=== PATIENT | female | born 1980 | race American Indian/Alaskan Native ===

== ENCOUNTER 2019-07-25 07:06 | Emergency (ER) | payer MEDICAID ==
[2019-07-25] MEDS ORDERED: METOCLOPRAMIDE 10 MG TAB PO ONE (08:54)
--- NOTE | 2019-07-25 08:54 | Emergency Department Report ---
ED General Adult HPI - General Chief complaint: Nausea/Vomiting/Diarrhea Stated complaint: DIZZY/VOMITING Time Seen by Provider: 07/25/19 08:27 Source: patient Mode of arrival: Ambulatory Limitations: No Limitations - History of Present Illness Initial comments: This is a 38-year-old female with a history of diabetes and hypertension presents the ED complaining of one episode of vomiting that happened yesterday while she was at work. Patient states she felt a little dizzy after the vomiting episode. Patient states she got a little dizzy this morning as well. Patient states that she did get a chance to eat breakfast so this may be due to that. Patient states that she saw her primary care physician about a month ago and he recently changed her blood pressure medication. Patient states that since she has been taking the new blood pressure medication she has been feeling a little nauseated and sometimes lightheaded. She denies fever/chills/abdominal pain/chest pain/shortness of breath/diarrhea/headache/blurry vision - Related Data Previous Rx's Medication Instructions Recorded Last Taken Type Metoclopramide [Reglan] 10 mg PO TID #30 tab 07/25/19 Unknown Rx Allergies Allergy/AdvReac Type Severity Reaction Status Date / Time No Known Allergies Allergy Unverified 07/25/19 08:56 ED Review of Systems ROS: Stated complaint: DIZZY/VOMITING Other details as noted in HPI Comment: All other systems reviewed and negative ED Past Medical Hx - Past Medical History Previous Medical History?: Yes Hx Hypertension: Yes Hx Diabetes: Yes - Surgical History Past Surgical History?: No - Medications Home Medications: Home Medications Medication Instructions Recorded Confirmed Last Taken Type Metoclopramide [Reglan] 10 mg PO TID #30 tab 07/25/19 Unknown Rx ED Physical Exam - General Limitations: No Limitations General appearance: alert, in no apparent distress - Head Head exam: Present: atraumatic, normocephalic - Eye Eye exam: Present: normal appearance, PERRL Pupils: Present: normal accommodation - ENT ENT exam: Present: mucous membranes moist - Neck Neck exam: Present: normal inspection - Respiratory Respiratory exam: Present: normal lung sounds bilaterally. Absent: respiratory distress - Cardiovascular Cardiovascular Exam: Present: regular rate, normal rhythm. Absent: systolic murmur, diastolic murmur, rubs, gallop - GI/Abdominal GI/Abdominal exam: Present: soft, normal bowel sounds. Absent: distended, tenderness, guarding, mass, bruit - Extremities Exam Extremities exam: Present: normal inspection - Back Exam Back exam: Present: normal inspection, full ROM. Absent: CVA tenderness (R), CVA tenderness (L) - Neurological Exam Neurological exam: Present: alert, oriented X3, CN II-XII intact, normal gait, reflexes normal. Absent: motor sensory deficit - Expanded Neurological Exam Expanded Patient oriented to: Present: person, place, time Speech: Present: fluid speech Cerebellar function: Finger to Nose: Normal Motor strength exam: RUE: 5, LUE: 5, RLE: 5, LLE: 5 Best Eye Response ([place]): (4) open spontaneously Best Motor Response ([place]): (6) obeys commands Best Verbal Response ([place]): (5) oriented [place] Total: 15 - Psychiatric Psychiatric exam: Present: normal affect, normal mood - Skin Skin exam: Present: warm, dry, intact, normal color. Absent: rash ED Course Vital Signs 07/25/19 07/25/19 08:55 09:40 Temperature 98.6 F Pulse Rate 95 H 86 Respiratory 20 18 Rate Blood Pressure 142/95 140/86 [Left] O2 Sat by Pulse 96 99 Oximetry ED Medical Decision Making - Medical Decision Making This 38-year-old diabetic female presents with mild onset of vomiting that resolved. Patient received Reglan in the ED there was no vomiting in the ED. I discussed with patient to follow-up with primary care physician and discuss possibly changing blood pressure medication. Vital signs are normalized fingerstick in the ED was 147 which is this time as patient has not taken HER metformin this morning Patient is in no neurological deficit and has no respiratory or acute distress. Discussed with patient proper eating and taking her medications on time. Discussed increase hydration Critical care attestation.: If time is entered above; I have spent that time in minutes in the direct care of this critically ill patient, excluding procedure time. ED Disposition Clinical Impression: Acute vomiting, Diabetes Disposition: DC-01 TO HOME OR SELFCARE Is pt being admited?: No Does the pt Need Aspirin: No Condition: Stable Instructions: Diabetes Mellitus Type 2 in Adults (ED) Additional Instructions: Make sure to follow up with the primary care physician as discussed. Take all your medications as you've been prescribed. If you have any worsening symptoms or develop new symptoms please return to ED immediately. Prescriptions: Metoclopramide [Reglan] 10 mg PO TID #30 tab Referrals: FITO FERNANDEZ RN [Primary Care Provider] - 3-5 Days Forms: Accompanied Note, Work/School Release Form(ED) Time of Disposition: 09:25
[2019-07-25 09:41] VITALS: BP 140/86
== END 2019-07-25 09:40 | disposition home or self-care (01) ==
LOC: ED 07:06
DX: R11.10 Vomiting, unspecified (principal); R42 Dizziness and giddiness; E66.9 Obesity, unspecified; I10 Essential (primary) hypertension
CPT/HCPCS: 82962; 99282

== ENCOUNTER 2020-01-02 07:15 | Emergency (ER) | payer BC, MEDICAID ==
[2020-01-02 07:23] VITALS: BP 127/83
[2020-01-02 07:36] LABS: Basophils # (Auto) 0.1 K/mm3 (0.0-0.1); Basophils % (Auto) 0.8 % (0.0-1.8); Eosinophils # (Auto) 0.1 K/mm3 (0.0-0.4); Eosinophils % (Auto) 1.1 % (0.0-4.3); Hematocrit 27.4 % (30.3-42.9); Hemoglobin 9.2 gm/dl (10.1-14.3); Lymphocytes # (Auto) 2.3 K/mm3 (1.2-5.4); Lymphocytes % (Auto) 35.9 % (13.4-35.0); Mean Corpuscular HGB Conc 34 % (30-34); Mean Corpuscular Volume 82 fl (79-97); Monocytes # (Auto) 0.4 K/mm3 (0.0-0.8); Monocytes % (Auto) 6.4 % (0.0-7.3); Platelet Count 279 K/mm3 (140-440); Red Blood Count 3.36 M/mm3 (3.65-5.03); Red Cell Distribution Width 14.4 % (13.2-15.2)
[2020-01-02 08:19] LABS: Alanine Aminotransferase 19 units/L (7-56); Albumin 4.2 g/dL (3.9-5); BUN/Creatinine Ratio 14; Blood Urea Nitrogen 37 mg/dL (7-17); Hemolysis Index 0
--- NOTE | 2020-01-02 08:32 | Emergency Department Report ---
ED Abdominal Pain HPI - General Chief Complaint: Abdominal Pain Stated Complaint: STOMACH PAIN Time Seen by Provider: 01/02/20 08:31 Source: patient Mode of arrival: Ambulatory Limitations: No Limitations - History of Present Illness Initial Comments: 39-year-old -[place] female presents to the emergency room for lower abdominal pain for 2 days. She denies any nausea vomiting or diarrhea. She denies any fever chills. Patient does admit to a past medical history of diabetes hypertension and acute kidney disease. Patient states that she is followed by Dr. 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 Her next appointment is March 27. Patient reports that her last kidney function tests on December 15, 2019 was 1.9 she has had a maximum creatinine of 2.7 and the lowest has been is 0.7. Patient is currently takes amlodipine 10 mg daily and hyzaar 50 mg over 12.5 mg. Patient takes metformin 500 mg twice a day. Her primary care doctor is Dr. Millard at [facility]. MD Complaint: abdominal pain - Related Data Previous Rx's Medication Instructions Recorded Last Taken Type Metoclopramide [Reglan] 10 mg PO TID #30 tab 07/25/19 Unknown Rx Amoxicillin/K Clav Tab [Augmentin 1 tab PO Q12HR 10 Days #20 tab 01/02/20 Unknown Rx 875 mg] Allergies Allergy/AdvReac Type Severity Reaction Status Date / Time lisinopril Allergy Unknown Verified 01/02/20 07:21 ED Review of Systems ROS: Stated complaint: STOMACH PAIN Other details as noted in HPI ED Past Medical Hx - Past Medical History Hx Hypertension: Yes Hx Diabetes: Yes - Social History Smoking Status: Never Smoker - Medications Home Medications: Home Medications Medication Instructions Recorded Confirmed Last Taken Type Metoclopramide [Reglan] 10 mg PO TID #30 tab 07/25/19 Unknown Rx Amoxicillin/K Clav Tab [Augmentin 1 tab PO Q12HR 10 Days #20 tab 01/02/20 Unknown Rx 875 mg] ED Physical Exam - General Limitations: No Limitations ED Course Vital Signs 01/02/20 07:19 Temperature 98.0 F Pulse Rate 86 Respiratory 18 Rate Blood Pressure 127/83 O2 Sat by Pulse 100 Oximetry ED Medical Decision Making - Lab Data Result diagrams: 01/02/20 07:23 01/02/20 07:23 - Medical Decision Making 39-year-old -[place] female presents to the emergency room for lower abdominal pain for 2 days. She denies any nausea vomiting or diarrhea. She denies any fever chills. Patient does admit to a past medical history of diabetes hypertension and acute kidney disease. Patient states that she is followed by Dr. Ida Landry at [facility] hardware design engineer. Her next appointment is March 27. Patient reports that her last kidney function tests on December 15, 2019 was 1.9 she has had a maximum creatinine of 2.7 and the lowest has been is 0.7. Patient is currently takes amlodipine 10 mg daily and hyzaar 50 mg over 12.5 mg. Patient takes metformin 500 mg twice a day. Her primary care doctor is Dr. Milladr at [facility]. Patient's BUN today was 37 GFR of 25. Urinalysis shows that she has a urinary tract infection with greater than 182 WBCs as well as RBCs. CT scan shows is negative for any acute abnormalities. Patient was treated with the IV dose of normal saline and Levaquin 500 mg. Patient will be discharged home on Augmentin 875 p.o. twice da lj for 10 days. Patient is instructed to increase her water intake and to follow-up with her hardware design engineer. Critical care attestation.: If time is entered above; I have spent that time in minutes in the direct care of this critically ill patient, excluding procedure time. ED Disposition Clinical Impression: Chronic kidney disease (CKD) stage G1/A2, glomerular filtration rate (GFR) equal to or greater than 90 mL/min/1.73 square meter and albuminuria creatinine ratio between 30-299 mg/g, Diabetes 1.5, managed as type 2 Urinary tract infection Qualifiers: Urinary tract infection type: site unspecified Hematuria presence: with hematuria Qualified Code(s): N39.0 - Urinary tract infection, site not specified; R31.9 - Hematuria, unspecified Hypertension Qualifiers: Hypertension type: essential hypertension Qualified Code(s): I10 - Essential (primary) hypertension Disposition: TO HOME OR SELFCARE Is pt being admited?: No Does the pt Need Aspirin: No Condition: Stable Instructions: Abdominal Pain (ED), Diabetes Mellitus Type 2 in Adults (ED), Hypertension (ED), Urinary Tract Infection in Women (ED) Additional Instructions: CT scan is negative for any acute findings. Urinalysis shows that you have a urinary tract infection I would like for you to complete your antibiotics you can take [id number] pain medication. It is imperative that you increase your water intake. You must follow-up with your primary care doctor in the next 3 to 4 days for reevaluation. Prescriptions: Amoxicillin/K Clav Tab [Augmentin 875 mg] 1 tab PO Q12HR 10 Days #20 tab Referrals: ARNALDO FERNANDEZ JR, MD [Primary Care Provider] - 3-5 Days Forms: Work/School Release Form(ED)
[2020-01-02] MEDS ORDERED: SODIUM CHLORIDE 0.9% 1000 ML 1,000 ML IV ONE (08:53)
[2020-01-02 09:40] LABS: Bilirubin,Urine MOD (Negative); Blood,Urine LG (Negative); Color,Urine Red (Yellow); Urobilinogen,Urine < 2.0 mg/dL (<2.0)
[2020-01-02 09:42] LABS: RBC,Urine > 182.0 /HPF (0.0-6.0)
[2020-01-02 09:50] LABS: Ictotest,Urine Negative (Negative)
[2020-01-02] MEDS ORDERED: levoFLOXacin 500 MG TAB PO ONE (09:58)
[2020-01-02] MEDS ORDERED: ACETAMINOPHEN 325 MG TAB PO ONE (09:58)
--- NOTE | 2020-01-02 11:01 | Cat Scan Report ---
CT ABDOMEN AND PELVIS WITHOUT CONTRAST HISTORY: Pelvic pain COMPARISON: None TECHNIQUE: Routine abdominal and pelvic CT exam performed without contrast. Lack of intravenous cont rast limits evaluation of the vascular and solid organs.. All CT scans at this location are performed using CT dose reduction for ALARA by means of automated exposure control. FINDINGS: CT ABDOMEN: Lung Bases: No significant abnormality. Liver: No significant abnormality. Biliary: No significant abnormality. Spleen: No significant abnormality. Unenlarged. Pancreas: No significant abnormality. Adrenals: No significant abnormality. Kidneys: No stones, pelvocaliectasis, ureterectasis. No perinephric or periureteral stranding. Lymphatics: No lymphadenopathy. Vasculature: No significant abnormality. Bowel/Peritoneum: No significant abnormality. No free air. No free fluid. Normal appendix. CT PELVIC: : No acute findings. Previous bilateral tubal occlusion. Lymphatics: No lymphadenopathy. Osseous Structures: No aggressive appearing osseous lesions. Additional Findings: None IMPRESSION: 1. No significant abnormality. Signer Name: Mike Gray MD Signed: 01/02/2020 10:57 AM Workstation Name: [id number]
== END 2020-01-02 11:19 | disposition home or self-care (01) ==
LOC: ED 07:15
DX: E11.22 Type 2 diabetes mellitus with diabetic chronic kidney disease (principal); I12.9 Hypertensive chronic kidney disease with stage 1 through stage 4 chronic kidney disease, or unspecified chronic kidney disease; N18.9 Chronic kidney disease, unspecified; N39.0 Urinary tract infection, site not specified; Z79.2 Long term (current) use of antibiotics; Z79.899 Other long term (current) drug therapy; Z88.8 Allergy status to other drugs, medicaments and biological substances
CPT/HCPCS: 36415; 74176; 80053; 81001; 84703; 85025; 96360; 96361; 99284; J7030

== ENCOUNTER 2020-06-24 09:29 | Emergency (ER) | payer BC, MEDICAID ==
[2020-06-24 09:55] VITALS: BP 146/94
--- NOTE | 2020-06-24 10:28 | Emergency Department Report ---
Blank Doc - Documentation Documentation: This is a 39-year-old female headache with dizziness and syncopal episode yest erday. Patient also stated has abdominal pain with no nausea vomiting. 1- This initial assessment/diagnostic orders/clinical plan/ treatment(s) is/are subject to change based on pt's health status, clinical progression and re- assessment by fellow clinical providers in the ED. Further treatment and workup at subsequent clinical provers discretion. Patient/guardians urged not to elope from ED as their condition may be serious if not clinically assessed and managed. 2-EKG 3-CT head 4-labs
[2020-06-24 11:07] LABS: Basophils # (Auto) 0.1 K/mm3 (0.0-0.1); Eosinophils % (Auto) 0.7 % (0.0-4.3); Hematocrit 29.9 % (30.3-42.9); Hemoglobin 9.6 gm/dl (10.1-14.3); Lymphocytes # (Auto) 1.8 K/mm3 (1.2-5.4); Lymphocytes % (Auto) 33.5 % (13.4-35.0); Mean Corpuscular HGB Conc 32 % (30-34); Mean Corpuscular Volume 84 fl (79-97); Monocytes # (Auto) 0.3 K/mm3 (0.0-0.8); Monocytes % (Auto) 6.7 % (0.0-7.3); Platelet Count 280 K/mm3 (140-440); Red Blood Count 3.57 M/mm3 (3.65-5.03); Red Cell Distribution Width 14.5 % (13.2-15.2)
--- NOTE | 2020-06-24 11:13 | Cat Scan Report ---
CT HEAD WITHOUT CONTRAST INDICATION / CLINICAL INFORMATION: Syncope with headache for 3 days. TECHNIQUE: Axial imaging performed from the skull apex through the skull base without the use of cont rast. Sagittal and coronal reformatted images. All CT scans at this location are performed using CT dose reduction for ALARA by means of automated exposure control. COMPARISON: None available. FINDINGS: CEREBRAL PARENCHYMA: No significant abnormality. No acute territorial infarct. HEMORRHAGE: None. EXTRA-AXIAL SPACES: Normal in size and morphology for the patient's age. VENTRICULAR SYSTEM: Normal in size and morphology for the patient's age. MIDLINE SHIFT OR HERNIATION: None. CEREBELLUM / BRAINSTEM: No significant abnormality. CALVARIUM: No significant abnormality. ORBITS: Normal as visualized. PARANASAL SINUSES / MASTOID AIR CELLS: Normal as visualized. SOFT TISSUES of HEAD: No significant abnormality. ADDITIONAL FINDINGS: None. IMPRESSION: No acute intracranial abnormality. Signer Name: Tony Real Jr, MD Signed: 06/24/2020 11:08 AM Workstation Name: [id number]
[2020-06-24 11:27] LABS: Albumin 4.3 g/dL (3.9-5); Calcium 9.3 mg/dL (8.4-10.2)
== END 2020-06-24 14:17 | disposition left against medical advice (07) ==
LOC: ED 09:29
DX: R42 Dizziness and giddiness (principal); Z53.21 Procedure and treatment not carried out due to patient leaving prior to being seen by health care provider
CPT/HCPCS: 36415; 70450; 80053; 82962; 83690; 84703; 85025

== ENCOUNTER 2020-07-11 07:22 | Emergency (ER) | payer BC, MEDICAID ==
[2020-07-11 07:38] VITALS: BP 149/93
[2020-07-11] MEDS ORDERED: IBUPROFEN 600 MG TAB PO ONE (07:57)
--- NOTE | 2020-07-11 07:59 | Emergency Department Report ---
ED Extremity Problem HPI - General Chief complaint: Extremity Injury, Lower Stated complaint: KNEE SWELLING Time Seen by Provider: 07/11/20 07:46 Source: patient Mode of arrival: Ambulatory Limitations: No Limitations - History of Present Illness Initial comments: The patient was evaluated in the emergency department for symptoms described in the history of present illness. He/she was evaluated in the context of the global COVID-19 pandemic, which necessitated consideration that the patient might be at risk for infection with the virus that causes COVID-19. Institutional protocols and algorithms that pertain to the evaluation of patients at risk for COVID-19 are in a state of rapid change based on information released by regulatory bodies including the CDC and federal and state organizations. These policies and algorithms were followed during the patient's care in the emergency department. Please note that these policies, procedures and recommendations changed on a rapid basis. 39-year-old -[place] female with a history of diabetes and hypertension presents to the emergency room for left knee swelling and pain since Wednesday. Patient states she has been trying to pop her knee but it will not pop. Patient reports she has been taking Tylenol last dose was last night about 8 PM. 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 She does not recall any specific injury. MD Complaint: joint swelling, joint paint Onset/Timin -: days(s) Location: left, knee History of Same: No Severity scale (0 -10): 9 Quality: stabbing, aching, sharp Consistency: constant Improves with: immobilization Worsens with: weight bearing, walking, palpation Associated Symptoms: fever (Noted temperature of 99.1 in triage) - Related Data Previous Rx's Medication Instructions Recorded Last Taken Type Metoclopramide [Reglan] 10 mg PO TID #30 tab 07/25/19 Unknown Rx Amoxicillin/K Clav Tab [Augmentin 1 tab PO Q12HR 10 Days #20 tab 01/02/20 Unknown Rx 875 mg] Naproxen [Naprosyn TAB] 500 mg PO BID PRN #20 tablet 07/11/20 Unknown Rx Allergies Allergy/AdvReac Type Severity Reaction Status Date / Time lisinopril Allergy Unknown Verified 07/11/20 07:25 ED Review of Systems ROS: Stated complaint: KNEE SWELLING Other details as noted in HPI Comment: All other systems reviewed and negative ED Past Medical Hx - Past Medical History Hx Hypertension: Yes Hx Diabetes: Yes - Social History Smoking Status: Never Smoker - Medications Home Medications: Home Medications Medication Instructions Recorded Confirmed Last Taken Type Metoclopramide [Reglan] 10 mg PO TID #30 tab 07/25/19 Unknown Rx Amoxicillin/K Clav Tab [Augmentin 1 tab PO Q12HR 10 Days #20 tab 01/02/20 Unknown Rx 875 mg] Naproxen [Naprosyn TAB] 500 mg PO BID PRN #20 tablet 07/11/20 Unknown Rx ED Physical Exam - General Limitations: No Limitations General appearance: alert, in no apparent distress - Head Head exam: Present: atraumatic, normocephalic - Eye Eye exam: Present: normal appearance, PERRL - ENT ENT exam: Present: mucous membranes moist, normal external ear exam - Neck Neck exam: Present: normal inspection, full ROM - Respiratory Respiratory exam: Absent: accessory muscle use - Expanded Lower Extremity Exam Left Upper Leg exam: Present: normal inspection, full ROM Knee exam: Present: tenderness, swelling, full knee extension Lower Leg exam: Present: normal inspection, full ROM Ankle exam: Present: normal inspection, full ROM ED Course Vital Signs 07/11/20 07:31 Temperature 99.1 F Pulse Rate 90 Respiratory 18 Rate Blood Pressure 149/93 O2 Sat by Pulse 100 Oximetry ED Medical Decision Making - Radiology Data Radiology results: report reviewed [address] [address] XRay Report Signed Patient: SOMMER PICKETT MR#: [id number] : 1980 Acct:[id number] Age/Sex: 39 / F ADM Date: 07/11/20 Loc: ED Attending Dr: Ordering Physician: SOL BRITT Date of Service: 07/11/20 Procedure(s): XR knee 3V LT Accession Number(s): [id number] cc: SOL BRITT Fluoro Time In Minutes: LEFT KNEE 3 VIEWS INDICATION: left knee pain and swelling. COMPARISON: None. IMPRESSION: A moderate to large joint effusion is identified in the lateral image. Mild to moderate osteoarthritic changes are identified in the patellofemoral and medial compartments. No acute osseous injury or bone lesion is appreciated. Signer Name: Tony Real Jr, MD Signed: 07/11/2020 8:36 AM Workstation Name: [id number] Transcribed By: TTR Dictated By: TONY REAL JR, MD Electronically Authenticated By: TONY REAL JR, MD Signed Date/Time: 07/11/20835 DD/ 5 TD/TT: Print Cancel - Medical Decision Making 39-year-old -[place] female with a history of diabetes and hypertension presents to the emergency room for left knee swelling and pain since Wednesday. Patient states she has been trying to pop her knee but it will not pop. Patient reports she has been taking Tylenol last dose was last night about 8 PM. 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 She does not recall any specific injury. X-ray 3 view has been ordered ibuprofen 600 mg have been ordered. X-ray of knee shows moderate to large effusion. And mild to moderate osteoarthritic changes in the medial lateral. Need to wear the knee immobilizer and use the crutches and follow-up with orthopedic for possible MRI or further studies. Tylenol or ibuprofen or naproxen. Critical care attestation.: If time is entered above; I have spent that time in minutes in the direct care of this critically ill patient, excluding procedure time. ED Disposition Clinical Impression: Effusion of left knee joint Disposition: DC-01 TO HOME OR SELFCARE Is pt being admited?: No Does the pt Need Aspirin: No Condition: Stable Additional Instructions: Need to wear the knee immobilizer and use the crutches and follow-up with orthopedic for possible MRI or further studies. Tylenol or ibuprofen or naproxen. Prescriptions: Naproxen [Naprosyn TAB] 500 mg PO BID PRN #20 tablet PRN Reason: Pain , Severe (7-10) Referrals: PRIMARY CAREMD [Primary Care Provider] - 3-5 Days LEONIE JIM MD [Staff Physician] - 3-5 Days Forms: Work/School Release Form(ED)
--- NOTE | 2020-07-11 08:41 | XRay Report ---
LEFT KNEE 3 VIEWS INDICATION: left knee pain and swelling. COMPARISON: None. IMPRESSION: A moderate to large joint effusion is identified in the lateral image. Mild to moderate osteoarthritic changes are identified in the patellofemoral and medial compartments. No acute osseou s injury or bone lesion is appreciated. Signer Name: Tony Real Jr, MD Signed: 07/11/2020 8:36 AM Workstation Name: [id number]
== END 2020-07-11 09:38 | disposition home or self-care (01) ==
LOC: ED 07:22
DX: M25.462 Effusion, left knee (principal); I10 Essential (primary) hypertension; E11.9 Type 2 diabetes mellitus without complications; Z79.899 Other long term (current) drug therapy
CPT/HCPCS: 99283

== ENCOUNTER 2022-01-06 06:32 | Inpatient (IN) | payer BC, MEDICAID ==
[2022-01-06] MEDS ORDERED: ACETAMINOPHEN 325 MG TAB PO ONE (10:13)
[2022-01-06] MEDS ORDERED: IBUPROFEN 600 MG TAB PO ONE (10:14)
--- NOTE | 2022-01-06 10:55 | XRay Report ---
Thoracic spine, 2 views Lumbar spine, 3 views HISTORY: Pain COMPARISON: None FINDINGS: Thoracic spine: Alignment is preserved. No evidence of fracture. Small endplate osteophytes of the up per thoracic spine. Soft tissues are unremarkable. Visualized lungs are clear. Lumbar spine: Transitional features at the lumbosacral junction. Alignment is preserved. Vertebral asa dy heights and disc spaces are maintained. No evidence of fracture. IMPRESSION: No acute findings of the lumbar or thoracic spine. Signer Name: Ric Jimenez MD Signed: 01/06/2022 10:51 AM Workstation Name: [id number]
[2022-01-06 12:51] LABS: Hematocrit 31.5 % (30.3-42.9); Hemoglobin 9.7 gm/dl (10.1-14.3); Mean Corpuscular HGB Conc 31 % (30-34); Mean Corpuscular Volume 89 fl (79-97); Platelet Count 267 K/mm3 (140-440); Red Blood Count 3.52 M/mm3 (3.65-5.03); Red Cell Distribution Width 17.1 % (13.2-15.2)
[2022-01-06 12:57] LABS: RBC,Urine < 1.0 /HPF (0.0-6.0)
[2022-01-06 13:04] LABS: Amphetamine Screen,Urine PRESUMPTIVE NEGATIVE; Benzodiazepines Screen,Urine PRESUMPTIVE NEGATIVE; Cannabinoid Screen,Urine PRESUMPTIVE NEGATIVE; Cocaine Screen,Urine PRESUMPTIVE NEGATIVE; Color,Urine Yellow (Yellow); Methadone Screen,Urine PRESUMPTIVE NEGATIVE; Opiate Screen,Urine PRESUMPTIVE NEGATIVE
[2022-01-06 13:18] LABS: Calcium 9.3 mg/dL (8.4-10.2)
[2022-01-06] MEDS ORDERED: SODIUM CHLORIDE 0.9% 1000 ML 2,000 ML IV ONE (13:43)
[2022-01-06] MEDS ORDERED: MORPHINE 4 MG/1 ML INJ IV ONE (13:44)
--- NOTE | 2022-01-06 14:05 | Emergency Department Report ---
ED General Adult HPI - General Chief complaint: Back Pain/Injury Stated complaint: BACK PAIN PUI?: No Time Seen by Provider: 01/06/22 10:12 Source: patient, EMS Mode of arrival: Ambulatory Limitations: No Limitations - History of Present Illness Initial comments: This is a 41-year-old female with medical history hypertension congestive heart failure and also diabetes with cardiac stents came in today with concerns of back pain. According to patient she has been to multiple facility with complaint of back pain and all her work-up was unremarkable and was discharged from the ER. Patient states the back pain has been hurting her for the past couple days and also bilateral leg swelling but its better now. Patient denies any trauma or injury. Patient denies any other symptoms. Patient denies fever chill night sweat dizziness blurred vision lightheadedness headache tinnitus ear pain runny nose sore throat loss of taste or smell chest pain palpitation short of breath cough abdominal pain nausea vomiting diarrhea constipation dysuria myalgia arthralgia new rash and heat or cold intolerance. Severity scale (0 -10): 10 - Related Data Previous Rx's Medication Instructions Recorded Last Taken Type Metoclopramide [Reglan] 10 mg PO TID #30 tab 07/25/19 Unknown Rx Amoxicillin/K Clav Tab [Augmentin 1 tab PO Q12HR 10 Days #20 tab 01/02/20 Unkn own Rx 875 mg] Naproxen [Naprosyn TAB] 500 mg PO BID PRN #20 tablet 07/11/20 Unknown Rx Allergies Allergy/AdvReac Type Severity Reaction Status Date / Time lisinopril Allergy Unknown Verified 07/11/20 07:25 ED Review of Systems ROS: Stated complaint: BACK PAIN Other details as noted in HPI Comment: All other systems reviewed and negative Constitutional: no symptoms reported, see HPI Eyes: as per HPI ENT: as per HPI Respiratory: no symptoms reported, see HPI Cardiovascular: as per HPI Endocrine: no symptoms reported, see HPI Gastrointestinal: as per HPI, nausea Genitourinary: as per HPI Musculoskeletal: back pain Skin: as per HPI Neurological: as per HPI Psychiatric: as per HPI Hematological/Lymphatic: as per HPI ED Past Medical Hx - Past Medical History Previous Medical History?: Yes Hx Hypertension: Yes Hx Congestive Heart Failure: Yes Hx Diabetes: Yes - Social History Smoking Status: Unknown if ever smoked Substance Use Type: None - Medications Home Medications: Home Medications Medication Instructions Recorded Confirmed Last Taken Type Metoclopramide [Reglan] 10 mg PO TID #30 tab 07/25/19 Unknown Rx Amoxicillin/K Clav Tab [Augmentin 1 tab PO Q12HR 10 Days #20 tab 01/02/20 Unknown Rx 875 mg] Naproxen [Naprosyn TAB] 500 mg PO BID PRN #20 tablet 07/11/20 Unknown Rx ED Physical Exam - General Limitations: No Limitations General appearance: alert, in distress (Patient screaming) - Head Head exam: Present: atraumatic, normocephalic, normal inspection - Eye Eye exam: Present: normal appearance, PERRL, EOMI Pupils: Present: normal accommodation - ENT ENT exam: Present: normal exam, mucous membranes moist - Neck Neck exam: Present: normal inspection, full ROM - Respiratory Respiratory exam: Present: normal lung sounds bilaterally - Cardiovascular Cardiovascular Exam: Present: normal rhythm, tachycardia, normal heart sounds - GI/Abdominal GI/Abdominal exam: Present: soft, normal bowel sounds. Absent: distended, tenderness, guarding, rebound, rigid - Extremities Exam Extremities exam: Present: normal inspection, full ROM, normal capillary refill - Back Exam Back exam: Present: normal inspection, full ROM - Neurological Exam Neurological exam: Present: alert, oriented X3, CN II-XII intact - Psychiatric Psychiatric exam: Present: normal affect, normal mood - Skin Skin exam: Present: normal color ED Course Vital Signs 01/06/22 01/06/22 01/06/22 06:38 09:57 09:58 Temperature 97.8 F Pulse Rate 118 H Respiratory 16 Rate Blood Pressure Blood Pressure 154/100 [Right] O2 Sat by Pulse 99 100 100 Oximetry 01/06/22 01/06/22 01/06/22 09:59 10:03 10:06 Temperature Pulse Rate Respiratory Rate Blood Pressure 138/91 138/91 138/91 Blood Pressure [Right] O2 Sat by Pulse 100 100 100 Oximetry 01/06/22 01/06/22 01/06/22 10:08 10:10 10:12 Temperature Pulse Rate Respiratory Rate Blood Pressure 138/91 138/91 138/91 Blood Pressure [Right] O2 Sat by Pulse 100 100 100 Oximetry 01/06/22 01/06/22 01/06/22 10:14 10:16 10:18 Temperature Pulse Rate Respiratory Rate Blood Pressure 138/91 138/91 138/91 Blood Pressure [Right] O2 Sat by Pulse 100 94 100 Oximetry 01/06/22 01/06/22 01/06/22 10:20 10:21 10:22 Temperature Pulse Rate Respiratory Rate Blood Pressure 138/91 138/91 138/91 Blood Pressure [Right] O2 Sat by Pulse 100 100 100 Oximetry 01/06/22 01/06/22 01/06/22 10:24 10:26 10:28 Temperature Pulse Rate Respiratory Rate Blood Pressure 138/91 138/91 138/91 Blood Pressure [Right] O2 Sat by Pulse 100 100 100 Oximetry 01/06/22 01/06/22 01/06/22 10:30 10:32 10:34 Temperature Pulse Rate Respiratory Rate Blood Pressure 138/91 138/91 138/91 Blood Pressure [Right] O2 Sat by Pulse 100 99 100 Oximetry 01/06/22 01/06/22 01/06/22 10:36 10:38 10:40 Temperature Pulse Rate Respiratory Rate Blood Pressure 138/91 138/91 138/91 Blood Pressure [Right] O2 Sat by Pulse 100 100 100 Oximetry 01/06/22 01/06/22 01/06/22 10:42 10:43 10:52 Temperature Pulse Rate Respiratory Rate Blood Pressure 138/91 138/91 138/91 Blood Pressure [Right] O2 Sat by Pulse 97 100 100 Oximetry 01/06/22 01/06/22 01/06/22 10:54 10:56 10:58 Temperature Pulse Rate Respiratory Rate Blood Pressure 138/91 138/91 138/91 Blood Pressure [Right] O2 Sat by Pulse 100 100 99 Oximetry 01/06/22 01/06/22 01/06/22 11:00 12:29 12:30 Temperature Pulse Rate 81 Respiratory Rate Blood Pressure 138/91 138/91 138/91 Blood Pressure [Right] O2 Sat by Pulse 98 86 100 Oximetry 01/06/22 01/06/22 01/06/22 12:32 12:34 12:36 Temperature Pulse Rate Respiratory Rate Blood Pressure 138/91 138/91 138/91 Blood Pressure [Right] O2 Sat by Pulse 100 100 100 Oximetry 01/06/22 01/06/22 01/06/22 12:38 12:40 12:42 Temperature Pulse Rate Respiratory Rate Blood Pressure 138/91 138/91 138/91 Blood Pressure [Right] O2 Sat by Pulse 98 100 99 Oximetry 01/06/22 01/06/22 01/06/22 12:43 12:44 12:46 Temperature Pulse Rate Respiratory Rate Blood Pressure 151/105 151/105 151/105 Blood Pressure [Right] O2 Sat by Pulse 100 100 100 Oximetry 01/06/22 01/06/22 01/06/22 12:48 12:50 12:52 Temperature Pulse Rate Respiratory Rate Blood Pressure 151/105 151/105 151/105 Blood Pressure [Right] O2 Sat by Pulse 100 100 98 Oximetry 01/06/22 01/06/22 01/06/22 12:54 12:56 12:58 Temperature Pulse Rate Respiratory Rate Blood Pressure 151/105 151/105 151/105 Blood Pressure [Right] O2 Sat by Pulse 100 87 100 Oximetry 01/06/22 01/06/22 01/06/22 13:00 13:02 13:03 Temperature Pulse Rate Respiratory Rate Blood Pressure 151/105 151/105 157/115 Blood Pressure [Right] O2 Sat by Pulse 98 100 100 Oximetry 01/06/22 01/06/22 01/06/22 13:04 13:06 13:08 Temperature Pulse Rate Respiratory Rate Blood Pressure 157/115 157/115 157/115 Blood Pressure [Right] O2 Sat by Pulse 100 96 95 Oximetry - Reevaluation(s) Reevaluation #1: 01/06/22 14:04 Lipase came back to be elevated. Patient denies alcohol usage. Patient has a pancreatitis I will call the hospital for inpatient admission for pancreatitis and also pain control. 01/06/22 14:[address] KELLOGG WHO KINDLY ACCEPTED THE PATIENT. ED Medical Decision Making - Lab Data Result diagrams: 01/06/22 12:30 01/06/22 12:30 Critical care attestation.: If time is entered above; I have spent that time in minutes in the direct care of this critically ill patient, excluding procedure time. ED Disposition Clinical Impression: Pancreatitis, CHF (congestive heart failure), Pain Disposition: ADMITTED INPATIENT Is pt being admited?: Yes Does the pt Need Aspirin: No Condition: Stable Referrals: PRIMARY CARE, [Primary Care Provider] - 3-5 Days Time of Disposition: 14:06
[2022-01-06] MEDS ORDERED: LORazepam 2 MG/ML VIAL IV ONE (14:10)
--- NOTE | 2022-01-06 14:44 | XRay Report ---
XR chest 1V ap INDICATION / CLINICAL INFORMATION: ELEVATED BNP COMPARISON: None available. FINDINGS: SUPPORT DEVICES: None. HEART / MEDIASTINUM: Cardiac silhouette is enlarged. LUNGS / PLEURA: Interlobular septal thickening. Lungs are clear. Costophrenic sulci are sharp. No pn eumothorax. ADDITIONAL FINDINGS: No significant additional findings. IMPRESSION: 1. No acute findings. 2. Cardiomegaly with mild interstitial edema. Signer Name: Jose Rafael Calloway MD Signed: 01/06/2022 2:40 PM Workstation Name: [id number]
[2022-01-06 14:50] LABS: ABG HCO3 17.2 mmol/L (20.0-26.0); ABG Methemoglobin 0.5 % (0.0-1.5); ABG Oxygen Saturation 97.2 % (95.0-99.0); ABG PCO2 30.5 mm Hg; ABG PH 7.368 pH Units (7.350-7.450); ABG PO2 92.3 mm Hg (80.0-90.0)
--- NOTE | 2022-01-06 16:18 | Cat Scan Report ---
CT ABDOMEN AND PELVIS WITHOUT CONTRAST HISTORY: CKD W/ ELEVATED LIPASE; ANY COMPLICATIONS COMPARISON: CT abdomen pelvis without contrast 01/02/2020 TECHNIQUE: Axial CT images were obtained through the abdomen and pelvis without IV contrast. Sagittal and coronal reformatted images. All CT scans at this location are performed using CT dose reduction for ALARA by means of automated exposure control. FINDINGS: CT ABDOMEN: Lung Bases: There is new mild cardiomegaly. Mild congestive changes at the lung bases. No infiltrate or effusion. New small pericardial effusion. Liver: No significant abnormality. Biliary: There is layering hyperdensity in the dependent gallbladder consistent with numerous tiny st ones. No abnormal distention. There is diffuse gallbladder wall thickening. No biliary dilatation. Spleen: No significant abnormality. Unenlarged. Pancreas: No significant abnormality. Adrenals: No significant abnormality. Kidneys: There is mild perinephric stranding but no evidence for nephrolithiasis, hydronephrosis or f ocal renal lesion. The ureters are normal course and caliber. Lymphatics: No lymphadenopathy. Vasculature: No significant abnormality. Bowel/Peritoneum: No significant abnormality.. Normal appendix. There is trace ascites. No fluid elodia ection or free air. CT PELVIS: : The uterus, adnexa and bladder are unremarkable. Bilateral tubal ligation devices remain in simil ar position. Osseous Structures: No significant abnormality. Additional Findings: None IMPRESSION: Mild volume overload is suspected. No acute inflammatory process is appreciated. Cholelithiasis. Signer Name: Tony Real Jr, MD Signed: 01/06/2022 4:14 PM Workstation Name: [id number]
[2022-01-06] MEDS ORDERED: ONDANSETRON 4 MG/2 ML INJ IV PRN (17:00)
[2022-01-06] MEDS ORDERED: ALBUTEROL 2.5 MG/3 ML NEBU IH PRN (17:00)
[2022-01-06] MEDS ORDERED: ACETAMINOPHEN 325 MG TAB PO PRN (17:00)
[2022-01-06] MEDS: FUROSEMIDE 20 MG/2 ML INJ IV SCH (18:45)
--- NOTE | 2022-01-06 18:52 | History and Physical Report ---
History of Present Illness Date of admission: 01/06/22 16:23 Chief complaint: My back hurts and my legs are swollen History of present illness: 41 YO Female with HTN, DM, CAD S/P Stent Placement, CHF presents ED for evaluation. Patient reports "my back hurts and my legs are swollen". Patient states that she has experienced bilateral leg swelling over the past week with 10 pound unintentional weight gain over the past week. Patient also reports nausea as discomfort in an area that patient localizes which is consistent with the epigastric region with pain in her back. Patient knowledges orthopnea, paroxysmal nocturnal dyspnea, dyspnea on exertion, dyspnea at rest, decreased exercise tolerance. Patient also acknowledges noncompliance with low-sodium diet. EMS was notified and upon arrival the patient was found to be in distress and subsequent transported to [facility] for further care and evaluation of the aforementioned symptoms. The patient was seen and evaluated in the emergency department. All lab and imaging studies reviewed. Patient found to have clinical symptoms consistent with CHF decompensation, as well as acute pancreatitis. Patient admitted to medical floor due to increased risk of worsening symptoms after medical stabilization. Patient denies fever, chills, chest pain, palpitation, productive cough, ingestion of fluid/water from new or different sources, or known exposure to COVID-19. No prior admission for review. All medication listed at time of admission has been reconciled. Advanced care planning conducted in ED. Past History Past Medical History: heart failure, other (See HPI) Past Surgical History: No surgical history, Other (Reviewed) Social history: single. denies: smoking, alcohol abuse, prescription drug abuse Family history: diabetes, hypertension Medications and Allergies Allergies Allergy/AdvReac Type Severity Reaction Status Date / Time lisinopril Allergy Unknown Verified 07/11/20 07:25 Home Medications Medication Instructions Recorded Confirmed Last Taken Type Metoclopramide [Reglan] 10 mg PO TID #30 tab 07/25/19 Unknown Rx Amoxicillin/K Clav Tab [Augmentin 1 tab PO Q12HR 10 Days #20 tab 01/02/20 Unknown Rx 875 mg] Naproxen [Naprosyn TAB] 500 mg PO BID PRN #20 tablet 07/11/20 Unknown Rx Active Meds: Active Medications Acetaminophen (Acetaminophen 325 Mg Tab) 650 mg PO Q4H PRN PRN Reason: Pain MILD(1-3)/Fever >100.5/GARCIA Albuterol (Albuterol 2.5 Mg/3 Ml Nebu) 2.5 mg IH Q3HRT PRN PRN Reason: Shortness Of Breath Furosemide (Furosemide 20 Mg/2 Ml Inj) 20 mg IV BID@0600,1800 [facility] Last Admin: 01/06/22 18:45 Dose: 20 mg Hydromorphone HCl (Hydromorphone 0.5 Mg/0.5 Ml Inj) 0.5 mg IV Q6H PRN PRN Reason: Pain , Severe (7-10) Ondansetron HCl (Ondansetron 4 Mg/2 Ml Inj) 4 mg IV Q8H PRN PRN Reason: Nausea And Vomiting Oxycodone/Acetaminophen (Oxycodone /Acetaminophen 5-325mg Tab) 1 tab PO Q6H PRN PRN Reason: Pain, Moderate (4-6) Sodium Chloride (Sodium Chloride 0.9% 10 Ml Flush Syringe) 10 ml IV BID [facility] Sodium Chloride (Sodium Chloride 0.9% 10 Ml Flush Syringe) 10 ml IV PRN PRN PRN Reason: LINE FLUSH Review of Systems Constitutional: weight gain, no weight loss, no fever, no chills Ears, nose, mouth and throat: no ear pain, no ear discharge, no nasal congestion Breasts: no change in shape, no swelling, no mass Cardiovascular: orthopnea, shortness of breath, dyspnea on exertion, paroxysmal nocturnal dyspnea, leg edema, decreased exercise tolerance, no chest pain Respiratory: no cough, no cough with sputum, no excessive sputum Gastrointestinal: nausea, no abdominal pain, no vomiting, no diarrhea, no constipation Genitourinary Female: no pelvic pain, no flank pain, no dysuria, no urinary frequency, no urgency Rectal: no pain, no incontinence, no bleeding Musculoskeletal: no neck stiffness, no neck pain, no arm numbness/tingling, no low back pain, no shooting leg pain Integumentary: no rash, no pruritis, no redness, no jaundice Neurological: no head injury, no transient paralysis, no weakness, no numbness, no tingling, no syncope Psychiatric: no anxiety, no change in sleep habits, no insomnia, no hypersomnia, no change in appetite Endocrine: no cold intolerance, no heat intolerance, no polyphagia, no nocturia Hematologic/Lymphatic: no easy bruising, no easy bleeding Allergic/Immunologic: no urticaria, no allergic rhinitis, no wheezing Exam - Constitutional Vitals: Temp Pulse Resp BP Pulse Ox 97.8 F 81 16 130/97 98 01/06/22 06:38 01/06/22 11:00 01/06/22 06:38 01/06/22 15:51 01/06/22 16:38 General appearance: Present: mild distress - EENT Eyes: Present: PERRL ENT: hearing intact, clear oral mucosa - Neck Neck: Present: supple, normal ROM - Respiratory Respiratory effort: normal Respiratory: bilateral: CTA - Cardiovascular Heart Sounds: Present: S1 & S2. Absent: rub, click - Extremities Extremities: pulses symmetrical Extremity abnormal: edema Peripheral Pulses: within normal limits - Abdominal General gastrointestinal: Present: soft, non-tender, non-distended, normal bowel sounds Female genitourinary: Present: normal - Integumentary Integumentary: Present: clear, warm, dry - Musculoskeletal Musculoskeletal: generalized weakness - Psychiatric Psychiatric: appropriate mood/affect, intact judgment & insight - Neurologic Neurologic: CNII-XII intact, moves all extremities Results - Labs CBC & Chem 7: 01/06/22 12:30 01/06/22 12:30 Labs: Abnormal lab results 01/06/22 01/06/22 01/06/22 Range/Units 12:30 12:30 14:10 RBC 3.52 L (3.65-5.03) M/mm3 Hgb 9.7 L (10.1-14.3) gm/dl MCH 27 L (28-32) pg RDW 17.1 H (13.2-15.2) % ABG pO2 92.3 H (80.0-90.0) mm Hg ABG HCO3 17.2 L (20.0-26.0) mmol/L ABG Base Excess -7.0 L (-2.0-3.0) mmol/L ABG Hemoglobin 11.7 L (12.0-16.0) gm/dl Sodium 134 L (137-145) mmol/L Chloride 96.6 L (98-107) mmol/L Carbon Dioxide 13 L (22-30) mmol/L Creatinine 1.8 H (0.6-1.2) mg/dL Glucose 496 H (65-100) mg/dL Alkaline Phosphatase 214 H (35-129) units/L NT-Pro-B Natriuret Pep 98585 H (0-450) pg/mL Lipase 389 H (13-60) units/L Assessment and Plan - Patient Problems (1) CHF (congestive heart failure) Current Visit: Yes Status: Acute Qualifiers: Heart failure chronicity: acute on chronic Plan to address problem: Strict I's/O, monitoring application, daily weight, afterload reduction, blood pressure control, echocardiogram ordered and pending at time of admission, diuretic therapy with Lasix, cardiology team consulted. (2) Cardiorenal syndrome Current Visit: Yes Status: Acute Qualifiers: Heart failure presence: with heart failure Plan to address problem: Strict I's/O, monitor urine output every shift, nephrology team consulted. Urine electrolytes. (3) Hyponatremia Current Visit: Yes Status: Acute Plan to address problem: IV fluid resuscitation therapy Indicated, BMP, repeat BMP in a.m. (4) Pancreatitis Current Visit: Yes Status: Acute Qualifiers: Chronicity: acute Acute pancreatitis complication: unspecified Plan to address problem: IV fluid resuscitation therapy, bowel rest, pain control, lipase level, repeat lipase level in AM. (5) Metabolic acidosis Current Visit: Yes Status: Acute Plan to address problem: IV bicarbonate therapy. BMP, repeat BMP in AM. (6) DVT prophylaxis Current Visit: Yes Status: Acute Plan to address problem: SCD to bilateral lower extremities while in bed (7) Advance care planning Current Visit: Yes Status: Acute Plan to address problem: Disease education done, care plan discussed, diagnoses discussed, prognosis discussed, patient is full code. Patient acknowledges understanding and agreement with care plan, +30 minutes. (8) Preventative health care Current Visit: Yes Status: Acute Plan to address problem: Patient counseled regarding risk factor reduction, medication compliance, o utpatient follow-up with primary care physician for all age and risk factor appropriate screening test. +30 minutes.
[2022-01-06] MEDS: HYDROmorphone 0.5 MG/0.5 ML INJ IV PRN (19:25)
[2022-01-06] MEDS: hydrALAZINE 20 MG/1 ML INJ IV PRN (23:46)
[2022-01-07] MEDS: HYDROmorphone 0.5 MG/0.5 ML INJ IV PRN ×4 (01:35→20:58)
[2022-01-07] MEDS: hydrALAZINE 20 MG/1 ML INJ IV PRN (03:53)
[2022-01-07] MEDS: FUROSEMIDE 20 MG/2 ML INJ IV SCH (05:03)
[2022-01-07 06:38] LABS: Basophils % (Auto) 0.5 % (0.0-1.8); Hematocrit 32.4 % (30.3-42.9); Hemoglobin 10.5 gm/dl (10.1-14.3); Lymphocytes # (Auto) 0.7 K/mm3 (1.2-5.4); Lymphocytes % (Auto) 10.6 % (13.4-35.0); Mean Corpuscular HGB Conc 32 % (30-34); Mean Corpuscular Volume 87 fl (79-97); Monocytes # (Auto) 0.4 K/mm3 (0.0-0.8); Monocytes % (Auto) 6.2 % (0.0-7.3); Platelet Count 310 K/mm3 (140-440); Red Blood Count 3.75 M/mm3 (3.65-5.03); Red Cell Distribution Width 17.1 % (13.2-15.2)
[2022-01-07 06:53] LABS: Albumin 4.1 g/dL (3.9-5); Calcium 9.8 mg/dL (8.4-10.2)
[2022-01-07] MEDS ORDERED: FUROSEMIDE 20 MG/2 ML INJ IV SCH ×2 (09:37→10:00)
[2022-01-07] MEDS ORDERED: INSULIN LISPRO 100 UNIT/ML SUB-Q SCH (11:30)
[2022-01-07] MEDS: METOPROLOL SUCCINATE XL 25 MG TAB PO SCH (12:47)
[2022-01-07] MEDS: CLOPIDOGREL 75 MG TAB PO SCH (12:48)
[2022-01-07] MEDS: INSULIN REGULAR, HUMAN 100 UNITS/1 ML SUB-Q SCH ×3 (12:48→21:41)
--- NOTE | 2022-01-07 13:46 | Consultation ---
History of Present Illness Consult date: 01/07/22 Requesting physician: JONNY KELLOGG Consult reason: congestive heart failure History of present illness: Patient is a 41-year-old female with past medical history of coronary artery disease s/p stents(per review of records offered CABG but patient denied), ischemic cardiomyopathy, HFrEF, CKD, hypertension, anemia, chronic back pain, history of PE(anticoagulated on warfarin as an outpatient), diabetes who presented to the ED yesterday with a complaint of back pain and bilateral lower extremity edema x1 week. Patient also reports some abdominal pain located in the epigastric region. Patient reports pain in both her back and abdomen are worse with palpation. Patient does report that she has not been noncompliant with her fluid and salt restrictions she does report that she is compliant with medications. At time of interview patient states epigastric pain and bilateral lower extremity edema has resolved but she is still having back pain. She denies chest pain, nausea, vomiting, diaphoresis, palpitations. In the ED patient was found to have elevated creatinine, elevated BNP. Of note patient has had multiple admissions to various hospitals in the past few months. She was just discharged from [facility] on 12/31/2021 for similar complaints. Patient also recently discharged from [facility] due to suspected pyelonephritis on 12/11/2021. Patient is previously unknown to our practice. Cardiology is consulted for CHF. Past History Past Medical History: anemia, CAD, diabetes, heart failure, hypertension, hyperlipidemia, pulmonary embolism, other (See HPI) Past Surgical History: No surgical history, Other (Reviewed) Social history: single. denies: smoking, alcohol abuse, prescription drug abuse Family history: diabetes, hypertension Medications and Allergies Allergies Allergy/AdvReac Type Severity Reaction Status Date / Time lisinopril Allergy Unknown Verified 07/11/20 07:25 Home Medications Medication Instructions Recorded Confirmed Last Taken Type Metoclopramide [Reglan] 10 mg PO TID #30 tab 07/25/19 Unknown Rx Amoxicillin/K Clav Tab [Augmentin 1 tab PO Q12HR 10 Days #20 tab 01/02/20 Unknown Rx 875 mg] Naproxen [Naprosyn TAB] 500 mg PO BID PRN #20 tablet 07/11/20 Unknown Rx Active Meds: Active Medications Acetaminophen (Acetaminophen 325 Mg Tab) 650 mg PO Q4H PRN PRN Reason: Pain MILD(1-3)/Fever >100.5/GARCIA Albuterol (Albuterol 2.5 Mg/3 Ml Nebu) 2.5 mg IH Q3HRT PRN PRN Reason: Shortness Of Breath Atorvastatin Calcium (Atorvastatin 40 Mg Tab) 80 mg PO QHS [facility] Clopidogrel Bisulfate (Clopidogrel 75 Mg Tab) 75 mg PO QDAY [facility] Last Admin: 01/07/22 12:48 Dose: 75 mg Furosemide (Furosemide 40 Mg/4 Ml Inj) 40 mg IV 0600,1800 [facility] Furosemide (Furosemide 20 Mg/2 Ml Inj) 20 mg IV ONCE@1000 [facility] Stop: 01/07/22 14:00 Last Admin: 01/07/22 10:43 Dose: 20 mg Hydralazine HCl (Hydralazine 20 Mg/1 Ml Inj) 10 mg IV Q4HR PRN PRN Reason: Blood Pressure Last Admin: 01/07/22 03:53 Dose: 10 mg Hydromorphone HCl (Hydromorphone 0.5 Mg/0.5 Ml Inj) 0.5 mg IV Q6H PRN PRN Reason: Pain , Severe (7-10) Last Admin: 01/07/22 08:06 Dose: 0.5 mg Insulin Glargine (Insulin Glargine 100 Units/Ml) 10 units SUB-Q QHS [facility] Insulin Human Regular (Insulin Regular, Human 100 Units/1 Ml) 0 units SUB-Q [facility]; Protocol Last Admin: 01/07/22 12:48 Dose: 8 units Metoprolol Succinate (Metoprolol Succinate Xl 25 Mg Tab) 25 mg PO QDAY [facility] Last Admin: 01/07/22 12:47 Dose: 25 mg Ondansetron HCl (Ondansetron 4 Mg/2 Ml Inj) 4 mg IV Q8H PRN PRN Reason: Nausea And Vomiting Oxycodone/Acetaminophen (Oxycodone /Acetaminophen 5-325mg Tab) 1 tab PO Q6H PRN PRN Reason: Pain, Moderate (4-6) Sodium Chloride (Sodium Chloride 0.9% 10 Ml Flush Syringe) 10 ml IV BID [facility] Last Admin: 01/07/22 09:21 Dose: 10 ml Sodium Chloride (Sodium Chloride 0.9% 10 Ml Flush Syringe) 10 ml IV PRN PRN PRN Reason: LINE FLUSH Review of Systems Constitutional: no weight loss, no weight gain Ears, nose, mouth and throat: no nasal discharge, no sinus pressure, no sinus pain Cardiovascular: shortness of breath, leg edema, no chest pain Respiratory: shortness of breath Gastrointestinal: abdominal pain, no nausea, no vomiting Musculoskeletal: low back pain Integumentary: no rash, no pruritis, no redness Neurological: no head injury, no transient paralysis, no paralysis, no weakness Psychiatric: no anxiety, no memory loss Endocrine: no cold intolerance, no heat intolerance Hematologic/Lymphatic: no easy bruising, no easy bleeding Physical Examination Vital Signs Temp Pulse Resp BP Pulse Ox 97.8 F 118 H 16 154/100 99 01/06/22 06:38 01/06/22 06:38 01/06/22 06:38 01/06/22 06:38 01/06/22 06:38 General appearance: no acute distress HEENT: Positive: PERRL Neck: Positive: trachea midline Cardiac: Positive: Reg Rate and Rhythm Lungs: Positive: Normal Breath Sounds Neuro: Positive: Grossly Intact Abdomen: Positive: Soft Skin: Negative: Rash, Suspicious Lesions, Ulceration Extremities: Present: upper extr. pulses. Absent: edema Results 01/07/22 05:53 01/07/22 05:53 Cardiac Enzymes 01/07/22 Range/Units 05:53 AST 28 (5-40) units/L CBC 01/07/22 Range/Units 05:53 WBC 6.9 (4.5-11.0) K/mm3 RBC 3.75 (3.65-5.03) M/mm3 Hgb 10.5 (10.1-14.3) gm/dl Hct 32.4 (30.3-42.9) % Plt Count 310 (140-440) K/mm3 Lymph # (Auto) 0.7 L (1.2-5.4) K/mm3 [place] # (Auto) 0.4 (0.0-0.8) K/mm3 Eos # (Auto) 0.0 (0.0-0.4) K/mm3 Baso # (Auto) 0.0 (0.0-0.1) K/mm3 Comprehensive Metabolic Panel 01/07/22 Range/Units 05:53 Sodium 134 L (137-145) mmol/L Potassium 4.8 (3.6-5.0) mmol/L Chloride 94.7 L (98-107) mmol/L Carbon Dioxide 16 L (22-30) mmol/L BUN 17 (7-17) mg/dL Creatinine 1.5 H (0.6-1.2) mg/dL Glucose 464 H (65-100) mg/dL Calcium 9.8 (8.4-10.2) mg/dL AST 28 (5-40) units/L ALT 55 (7-56) units/L Alkaline Phosphatase 207 H (35-129) units/L Total Protein 7.0 (6.3-8.2) g/dL Albumin 4.1 (3.9-5) g/dL - Imaging and Cardiology Echo: pending, report reviewed Cardiac cath: report reviewed EKG: report reviewed, image reviewed EKG interpretations - Telemetry EKG Rhythm: Sinus Tachycardia - EKG Sinus rhythms and dysrhythmias: sinus tachycardia Repolarization changes or abnormalities: nonspecific abnormality, ST segment, and/or T wave Assessment and Plan Patient is a 41-year-old female with past medical history of coronary artery disease s/p stents(per review of records offered CABG but patient denied), ischemic cardiomyopathy, HFrEF, CKD, hypertension, anemia, chronic back pain, history of PE(anticoagulated on warfarin as an outpatient), diabetes who presented to the ED yesterday with a complaint of back pain and bilateral lower extremity edema x1 week. Acute on chronic HFrEF CAD s/p PCI Ischemic cardiomyopathy HFrEF CECE on CKD Hypertension History of PE-anticoagulated on warfarin as an outpatient Anemia Chronic back pain Uncontrolled diabetes Cardiac cath 11/06/2021 1. Left main artery: 0 % 2. Proximal left anterior descending artery: Patent stent, small area of underexpansion in the proximal stent 20 to 30% 3. Mid-Distal left anterior descending artery: Patent stent without significant restenosis. Mid apical LAD is a small vessel, likely negatively remodeled related to a significant amount of atherosclerosis 4. Circumflex/obtuse marginal artery: 60 % ostial. Posterolateral obtuse marginal is occluded, this territory does not appear to be viable by filling 5. Right coronary artery: 99% distal. Very small target arteries in the PL and PDA. 6. Coronary dominance: _Right_ 7. LVEDP: 36 mm Hg 8. LV-Aorta gradient: 0 mm Hg Cardiac cath 10/09/2021 1. Percutaneous coronary intervention was performed of the _90_% __proximal to mid___LAD_lesion 2. Stent Type: _Resolute [place] (drug eluting stent)_x _1_: [2.0 x 8 mm] and Synergy (drug eluting stent) x 2: [2.25 x 28 and 3.0 x 28) post dilated to 4.0 (proximally) and 2.5 (distally) 3. Results: _Excellent_angiographic result with MITCHEL _3_flow Echo 11/20/2021 Limited echo for heart failure. Left ventricle is significantly enlarged with global hypokinesis with ejection fraction 20%. No definite evidence of endocarditis. If high clinical suspicion consider transesophageal echocardiography. When compared with images from October 11 of this year: Previously mentioned right atrial mass is no longer present. LV function remains depressed. Echo 12/27/2021 Technically very limtied study due to patient agitation. No apical nor adequate subcostal view obtained The left ventricular systolic function is severely reduced with an ejection fraction of 10-15%. The left ventricular cavity, indexed to body surface area and gender is mildly dilated. There is moderate mitral valve regurgitation. There is severe tricuspid valve regurgitation, estimated RVSP 48mmHg Per review of records patient's outpatient medication: atorvastatin 80 mg p.o. nightly, Lasix 40 mg p.o. daily, metoprolol XL 25 mg p.o. daily, warfarin 5 mg p.o. daily, Plavix Plan: EKG shows sinus tach 100 with nonspecific T abnormalities. No acute ischemic changes. Patient denies any complaints of chest pain Patient has elevated BNP, and reported bilateral lower extremity edema agree with diuresis with Lasix 40 mg IV twice daily Strict I&O's, daily weights, repeat BMP in the a.m. with close monitoring of renal function Will resume outpatient medications: atorvastatin 80 mg p.o. nightly, metoprolol XL 25 mg p.o. daily, and Plavix Resume anticoagulation with warfarin pharmacy to dose Patient to be on Plavix and warfarin due to recent PCI No DA or ARB due to patient's documented allergy Per review of records Patient contacted with Dr. Alcala who agrees with plan of care - Patient Problems (1) Coronary artery disease Current Visit: Yes Status: Acute (2) Hypertension Current Visit: Yes Status: Acute (3) Acute on chronic HFrEF (heart failure with reduced ejection fraction) Current Visit: Yes Status: Acute (4) Ischemic cardiomyopathy Current Visit: Yes Status: Acute (5) Uncontrolled diabetes mellitus Current Visit: Yes Status: Acute (6) Acute kidney injury superimposed on CKD Current Visit: Yes Status: Acute (7) Cardiorenal syndrome Current Visit: Yes Status: Acute Qualifiers: Heart failure presence: with heart failure
--- NOTE | 2022-01-07 14:53 | Progress Note ---
Assessment and Plan (1) Acute systolic CHF (congestive heart failure) Current Visit: Yes Status: Acute Qualifiers: Heart failure chronicity: acute on chronic Plan to address problem: Strict I's/O, monitoring application, daily weight, afterload reduction, blood pressure control, echocardiogram ordered and pending at time of admission, diuretic therapy with Lasix, cardiology team consulted. (2) Cardiorenal syndrome Current Visit: Yes Status: Acute Qualifiers: Heart failure presence: with heart failure Plan to address problem: Strict I's/O, monitor urine output every shift, nephrology team consulted. Ur ine electrolytes. (3) Hyponatremia Current Visit: Yes Status: Acute Plan to address problem: IV fluid resuscitation therapy Indicated, BMP, repeat BMP in a.m. (4) Pancreatitis Current Visit: Yes Status: Acute Qualifiers: Chronicity: acute Acute pancreatitis complication: unspecified Plan to address problem: IV fluid resuscitation therapy, bowel rest, pain control, lipase level, repeat lipase level in AM. (5) Metabolic acidosis Current Visit: Yes Status: Acute Plan to address problem: IV bicarbonate therapy. BMP, repeat BMP in AM. (6) DVT prophylaxis Current Visit: Yes Status: Acute Plan to address problem: SCD to bilateral lower extremities while in bed (7) Advance care planning Current Visit: Yes Status: Acute Plan to address problem: Disease education done, care plan discussed, diagnoses discussed, prognosis discussed, patient is full code. Patient acknowledges understanding and agreement with care plan, +30 minutes. (8) Preventative health care Current Visit: Yes Status: Acute Plan to address problem: Patient counseled regarding risk factor reduction, medication compliance, outpatient follow-up with primary care physician for all age and risk factor appropriate screening test. +30 minutes. Subjective Date of service: 01/07/22 Objective - Constitutional Vitals: Vital Signs - 12hr 01/07/22 01/07/22 01/07/22 03:45 03:53 12:50 Pulse Rate 78 Respiratory 18 Rate Blood Pressure 159/111 157/115 O2 Sat by Pulse 98 99 Oximetry - Labs CBC & Chem 7: 01/07/22 05:53 01/07/22 05:53 Labs: Abnormal lab results 01/07/22 01/07/22 01/07/22 Range/Units 05:53 05:53 07:44 RDW 17.1 H (13.2-15.2) % Lymph % (Auto) 10.6 L (13.4-35.0) % Lymph # (Auto) 0.7 L (1.2-5.4) K/mm3 Seg Neutrophils % 82.7 H (40.0-70.0) % Sodium 134 L (137-145) mmol/L Chloride 94.7 L (98-107) mmol/L Carbon Dioxide 16 L (22-30) mmol/L Creatinine 1.5 H (0.6-1.2) mg/dL Glucose 464 H (65-100) mg/dL POC Glucose 459 H (70-105) mg/dL Alkaline Phosphatase 207 H (35-129) units/L Lipase 228 H (13-60) units/L 01/07/22 Range/Units 12:27 RDW (13.2-15.2) % Lymph % (Auto) (13.4-35.0) % Lymph # (Auto) (1.2-5.4) K/mm3 Seg Neutrophils % (40.0-70.0) % Sodium (137-145) mmol/L Chloride (98-107) mmol/L Carbon Dioxide (22-30) mmol/L Creatinine (0.6-1.2) mg/dL Glucose (65-100) mg/dL POC Glucose 353 H (70-105) mg/dL Alkaline Phosphatase (35-129) units/L Lipase (13-60) units/L
[2022-01-07 15:19] LABS: INR 1.05 (0.87-1.13)
[2022-01-07] MEDS: oxyCODONE /ACETAMINOPHEN 5-325MG TAB PO PRN (16:46)
[2022-01-07] MEDS ORDERED: WARFARIN 5 MG TAB PO SCH (17:00)
[2022-01-07] MEDS: FUROSEMIDE 40 MG/4 ML INJ IV SCH (18:06)
[2022-01-07] MEDS ORDERED: INSULIN GLARGINE 100 UNITS/ML SUB-Q SCH (22:00)
[2022-01-07] MEDS ORDERED: DEXTROSE 50% IN WATER (25GM) 50 ML SYRINGE IV ONE (22:09)
[2022-01-08] MEDS: oxyCODONE /ACETAMINOPHEN 5-325MG TAB PO PRN ×2 (03:08→09:54)
[2022-01-08] MEDS: HYDROmorphone 0.5 MG/0.5 ML INJ IV PRN (03:29)
[2022-01-08] MEDS: FUROSEMIDE 40 MG/4 ML INJ IV SCH (05:17)
[2022-01-08 05:45] LABS: Calcium 9.9 mg/dL (8.4-10.2)
[2022-01-08] MEDS: CLOPIDOGREL 75 MG TAB PO SCH (09:54)
[2022-01-08] MEDS: METOPROLOL SUCCINATE XL 25 MG TAB PO SCH (09:54)
[2022-01-08] MEDS ORDERED: ENOXAPARIN 100 MG/1 ML INJ SUB-Q SCH (10:00)
[2022-01-08] MEDS ORDERED: SACUBITRIL/VALSARTAN 24-26 MG TAB PO SCH (10:00)
[2022-01-08] MEDS ORDERED: FUROSEMIDE 40 MG TAB PO SCH (10:00)
[2022-01-08] MEDS ORDERED: DAPAGLIFLOZIN (NF) PROPANEDIOL 5 MG TAB PO SCH (10:00)
[2022-01-08] MEDS: INSULIN REGULAR, HUMAN 100 UNITS/1 ML SUB-Q SCH ×2 (10:07→15:14)
[2022-01-08] MEDS ORDERED: PROMETHAZINE 25 MG TAB PO PRN (10:12)
--- NOTE | 2022-01-08 10:42 | Progress Note ---
Assessment and Plan Patient is a 41-year-old female with past medical history of coronary artery disease s/p stents(per review of records offered CABG but patient denied), ischemic cardiomyopathy, HFrEF, CKD, hypertension, anemia, chronic back pain, history of PE(anticoagulated on warfarin as an outpatient), diabetes who presented to the ED yesterday with a complaint of back pain and bilateral lower extremity edema x1 week. Acute on chronic HFrEF CAD s/p PCI Ischemic cardiomyopathy HFrEF CECE on CKD Hypertension History of PE-anticoagulated on warfarin as an outpatient Anemia Chronic back pain Uncontrolled diabetes Cardiac cath 11/06/2021 1. Left main artery: 0 % 2. Proximal left anterior descending artery: Patent stent, small area of underexpansion in the proximal stent 20 to 30% 3. Mid-Distal left anterior descending artery: Patent stent without significant restenosis. Mid apical LAD is a small vessel, likely negatively remodeled related to a significant amount of atherosclerosis 4. Circumflex/obtuse marginal artery: 60 % ostial. Posterolateral obtuse marginal is occluded, this territory does not appear to be viable by filling 5. Right coronary artery: 99% distal. Very small target arteries in the PL and PDA. 6. Coronary dominance: _Right_ 7. LVEDP: 36 mm Hg 8. LV-Aorta gradient: 0 mm Hg Cardiac cath 10/09/2021 1. Percutaneous coronary intervention was performed of the _90_% __proximal to mid___LAD_lesion 2. Stent Type: _Resolute [place] (drug eluting stent)_x _1_: [2.0 x 8 mm] and Synergy (drug eluting stent) x 2: [2.25 x 28 and 3.0 x 28) post dilated to 4.0 (proximally) and 2.5 (distally) 3. Results: _Excellent_angiographic result with MITCHEL _3_flow Echo 11/20/2021 Limited echo for heart failure. Left ventricle is significantly enlarged with global hypokinesis with ejection fraction 20%. No definite evidence of endocarditis. If high clinical suspicion consider transesophageal echocardiography. When compared with images from October 11 of this year: Previously mentioned right atrial mass is no longer present. LV function remains depressed. Echo 12/27/2021 Technically very limtied study due to patient agitation. No apical nor adequate subcostal view obtained The left ventricular systolic function is severely reduced with an ejection fraction of 10-15%. The left ventricular cavity, indexed to body surface area and gender is mildly dilated. There is moderate mitral valve regurgitation. There is severe tricuspid valve regurgitation, estimated RVSP 48mmHg Per review of records patient's outpatient medication: atorvastatin 80 mg p.o. nightly, Lasix 40 mg p.o. daily, metoprolol XL 25 mg p.o. daily, warfarin 5 mg p.o. daily, Plavix Plan: EKG shows sinus tach 100 with nonspecific T abnormalities. No acute ischemic changes. Patient denies any complaints of chest pain Patient appears euvolemic on exam we will stop Lasix IV and convert to outpatient Lasix 40 mg p.o. daily Will initiate Entresto 24-26 mg p.o. twice daily and Farxiga 5 mg p.o. daily Strict I&O's, daily weights, repeat BMP in the a.m. with close monitoring of renal function Continue outpatient medications: atorvastatin 80 mg p.o. nightly, metoprolol XL 25 mg p.o. daily, and Plavix Resume anticoagulation with warfarin pharmacy to dose Patient to be on Plavix and warfarin due to recent PCI Cardiac status otherwise stable Patient to follow-up with their primary operator helper in 1 to 2 weeks after discharge Patient contacted with Dr. Alcala who agrees with plan of care - Patient Problems (1) Coronary artery disease Current Visit: Yes Status: Acute (2) Hypertension Current Visit: Yes Status: Acute (3) Acute on chronic HFrEF (heart failure with reduced ejection fraction) Current Visit: Yes Status: Acute (4) Ischemic cardiomyopathy Current Visit: Yes Status: Acute (5) Uncontrolled diabetes mellitus Current Visit: Yes Status: Acute (6) Acute kidney injury superimposed on CKD Current Visit: Yes Status: Acute (7) Cardiorenal syndrome Current Visit: Yes Status: Acute Qualifiers: Heart failure presence: with heart failure Subjective Date of service: 01/08/22 Principal diagnosis: Back pain, acute on chronic HFrEF Interval history: Patient sitting in chair complaining of back pain and requesting narcotics Sinus tach 100s on 5 beat run NSVT Objective Vital Signs Temp Pulse Resp BP Pulse Ox 01/08/22 07:34 97.9 F 98 H 16 124/89 100 01/08/22 04:04 98.0 F 92 H 18 160/105 99 01/08/22 04:00 93 H 01/08/22 01:00 18 99 01/08/22 00:05 98.5 F 94 H 16 143/104 100 01/07/22 22:00 98 01/07/22 20:51 98.0 F 18 151/111 01/07/22 20:50 112 H 150/113 100 01/07/22 20:00 97 H 01/07/22 16:46 18 01/07/22 15:44 98.1 F 100 H 18 125/85 99 01/07/22 12:50 18 99 - Physical Examination General: Other (Complaining of pain sitting in chair) HEENT: Positive: PERRL Neck: Positive: trachea midline Cardiac: Positive: Regular Rhythm, Tachycardia Lungs: Positive: Normal Breath Sounds Neuro: Positive: Grossly Intact Abdomen: Positive: Soft Skin: Negative: Rash, Suspicious Lesions, Ulceration Extremities: Present: upper extr. pulses. Absent: edema - Labs and Meds Coagulation 01/07/22 Range/Units 14:48 PT 15.2 H (12.2-14.9) Sec. INR 1.05 (0.87-1.13) Comprehensive Metabolic Panel 01/08/22 Range/Units 04:52 Sodium 135 L (137-145) mmol/L Potassium 3.6 D (3.6-5.0) mmol/L Chloride 95.2 L (98-107) mmol/L Carbon Dioxide 23 D (22-30) mmol/L BUN 17 (7-17) mg/dL Creatinine 1.5 H (0.6-1.2) mg/dL Glucose 187 H (65-100) mg/dL Calcium 9.9 (8.4-10.2) mg/dL - Imaging and Cardiology EKG: report reviewed, image reviewed Echo: report reviewed Cardiac cath: report reviewed - Telemetry EKG Rhythm: Sinus Tachycardia - EKG Sinus rhythms and dysrhythmias: sinus tachycardia Repolarization changes or abnormalities: nonspecific abnormality, ST segment, and/or T wave
[2022-01-08] MEDS ORDERED: ENOXAPARIN 60 MG/0.6 ML INJ SUB-Q SCH (14:00)
[2022-01-08] MEDS ORDERED: oxyCODONE /ACETAMINOPHEN 5-325MG TAB PO ONE (14:44)
[2022-01-08 16:45] VITALS: BP 135/92
--- NOTE | 2022-01-08 16:48 | Discharge Summary ---
Providers - Providers Date of Admission: 01/06/22 16:23 Date of discharge: 01/08/22 Attending physician: KELSEY BUCKNER 01/06/22 18:59 Consult to Cardiology [CONS] Routine Consulting Provider: CARLOS WINTER Reason For Exam: chf Primary care physician: CRIB CLERK Hospitalization Condition: Stable Disposition: 30 STILL A PATIENT Final Discharge Diagnosis (Prints w/discharge instructions): Acute on chronic HFrEF. CAD s/p PCI. Ischemic cardiomyopathy. HFrEF. CECE on CKD with cardiorenal syndrom. Hypertension. History of PE-anticoagulated on warfarin as an outpatient. Anemia. Chronic back pain. Uncontrolled diabetes. Pancrestitis Time spent for discharge: 34 minutes Core Measure Documentation - Palliative Care Palliative Care/ Comfort Measures: Not Applicable - Core Measures Any of the following diagnoses?: heart failure - Heart Failure Discharge Requirements DA/ARB for LVSD if EF <40%: Not Applicable Reason for no DA/ARB: Renal impairment Beta kevin at discharge: Yes Exam - Constitutional Vitals: Temp Pulse Resp BP Pulse Ox 97.9 F 98 H 16 124/89 99 01/08/22 07:34 01/08/22 07:34 01/08/22 07:34 01/08/22 07:34 01/08/22 14:30 Plan Activity: advance as tolerated Weight Bearing Status: Non-Weight Bearing Diet: advance as tolerated Additional Instructions: Follow-up with ticketing agent in 1 week, follow-up at pain management clinic in 1 week Follow up with: PRIMARY CARE, [Primary Care Provider] - 3-5 Days Prescriptions: oxyCODONE /ACETAMINOPHEN [Percocet 5/325 mg] 1 tab PO Q6H PRN #5 tablet PRN Reason: Pain, Moderate (4-6)
--- NOTE | 2022-01-08 17:34 | Electrocardiograph Report ---
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
== END 2022-01-08 17:57 | disposition home or self-care (01) | DRG 438 ==
LOC: ED 06:32 → 4A 16:23
PROVIDERS: ADMIT Internal Medicine; ATTEND Internal Medicine
DX: K85.90 Acute pancreatitis without necrosis or infection, unspecified (principal); I50.23 Acute on chronic systolic (congestive) heart failure; I13.0 Hypertensive heart and chronic kidney disease with heart failure and stage 1 through stage 4 chronic kidney disease, or unspecified chronic kidney disease; E87.2 Acidosis; E87.1 Hypo-osmolality and hyponatremia; N18.9 Chronic kidney disease, unspecified; E11.22 Type 2 diabetes mellitus with diabetic chronic kidney disease; I25.10 Atherosclerotic heart disease of native coronary artery without angina pectoris; I25.5 Ischemic cardiomyopathy; G89.29 Other chronic pain; M54.9 Dorsalgia, unspecified; E78.5 Hyperlipidemia, unspecified; N17.9 Acute kidney failure, unspecified; Z83.3 Family history of diabetes mellitus; Z86.711 Personal history of pulmonary embolism; Z88.8 Allergy status to other drugs, medicaments and biological substances; Z82.49 Family history of ischemic heart disease and other diseases of the circulatory system
CPT/HCPCS: 36415; 71045; 72070; 72100; 74176; 80048; 80053; 80307; 80320; 81001; 82010; 82803; 82962; 83690; 83880; 85025; 85027; 85610; 93005; 93306; 99285; G0378; J3490; Q9967; C8929; G0480; J0360; J1170; J1815; J1940; J2060; J2270; J7030; Q0169

== ENCOUNTER 2022-01-10 22:46 | Emergency (ER) | payer MEDICAID ==
[2022-01-10] MEDS ORDERED: SODIUM CHLORIDE 0.9% 1000 ML 1,000 ML IV ONE (23:06)
--- NOTE | 2022-01-10 23:14 | Emergency Department Report ---
ED General Adult HPI - General Stated complaint: GENERAL PAINS PUI?: No Source: patient - History of Present Illness Initial comments: 41 YEAR OLD FEMALE WHO WAS JUST DISCHARGE FROM THE HOSPITAL FOR [facility]UTE ON CHRONIC HFREF, QUESTIONABLE PANCREATITIS (ELEVATED LIPASE W/ NORMAL CT PANCREAS), CHRONIC BACK PAIN WHO WAS JUST DISCHARGED. PATIENT STATES SHE CAME BACK BECAUSE 'STILL' BACK PAIN AND WAS ONLY GIVEN '1' PERCOCET. PATIENT IS AGAIN, SCREAMING IN THE ER LIKE PREVIOUS VISIT. ONLY COMPLAIN FOR THIS VISIT IS BACK PAIN. - Related Data Home Medications Medication Instructions Recorded Confirmed Last Taken Atorvastatin Calcium [Lipitor] 80 mg PO QDAY 01/08/22 01/08/22 Unknown Clopidogrel [Plavix] 75 mg PO QDAY 01/08/22 01/08/22 Unknown Digoxin 125 mcg PO QDAY 01/08/22 01/08/22 Unknown Enoxaparin 100 mg SQ Q12HR 01/08/22 01/08/22 Unknown Folic Acid 1 mg PO QDAY 01/08/22 01/08/22 Unknown Furosemide [Lasix TAB] 40 mg PO QDAY 01/08/22 01/08/22 Unknown Isosorbide Dinitrate [Isordil] 20 mg PO TID 01/08/22 01/08/22 Unknown Metoprolol Xl [Metoprolol 25 mg PO QDAY 01/08/22 01/08/22 Unknown SUCCINATE ER TAB] Pantoprazole Sodium 1 tab PO DAILY 01/08/22 01/08/22 Unknown Warfarin [Coumadin] 5 mg PO QDAY 01/08/22 01/08/22 Unknown hydrALAZINE [Apresoline TAB] 25 mg PO Q8HR 01/08/22 01/08/22 Unknown Previous Rx's Medication Instructions Recorded Last Taken Type oxyCODONE /ACETAMINOPHEN [Percocet 1 tab PO Q6H PRN #5 tablet 01/08/22 Unknown Rx 5/325 mg] Allergies Allergy/AdvReac Type Severity Reaction Status Date / Time lisinopril Allergy Swelling Verified 01/08/22 15:40 ED Review of Systems ROS: Stated complaint: GENERAL PAINS Other details as noted in HPI Comment: All other systems reviewed and negative Constitutional: no symptoms reported Eyes: as per HPI ENT: as per HPI Respiratory: no symptoms reported Cardiovascular: as per HPI Endocrine: no symptoms reported, see HPI Gastrointestinal: as per HPI Musculoskeletal: back pain Skin: as per HPI Neurological: as per HPI Psychiatric: as per HPI Hematological/Lymphatic: as per HPI ED Past Medical Hx - Past Medical History Hx Hypertension: Yes Hx Congestive Heart Failure: Yes Hx Diabetes: Yes - Social History Smoking Status: Never Smoker - Medications Home Medications: Home Medications Medication Instructions Recorded Confirmed Last Taken Type Atorvastatin Calcium [Lipitor] 80 mg PO QDAY 01/08/22 01/08/22 Unknown History Clopidogrel [Plavix] 75 mg PO QDAY 01/08/22 01/08/22 Unknown History Digoxin 125 mcg PO QDAY 01/08/22 01/08/22 Unknown History Enoxaparin 100 mg SQ Q12HR 01/08/22 01/08/22 Unknown History Folic Acid 1 mg PO QDAY 01/08/22 01/08/22 Unknown History Furosemide [Lasix TAB] 40 mg PO QDAY 01/08/22 01/08/22 Unknown History Isosorbide Dinitrate [Isordil] 20 mg PO TID 01/08/22 01/08/22 Unknown History Metoprolol Xl [Metoprolol 25 mg PO QDAY 01/08/22 01/08/22 Unknown History SUCCINATE ER TAB] Pantoprazole Sodium 1 tab PO DAILY 01/08/22 01/08/22 Unknown History Warfarin [Coumadin] 5 mg PO QDAY 01/08/22 01/08/22 Unknown History hydrALAZINE [Apresoline TAB] 25 mg PO Q8HR 01/08/22 01/08/22 Unknown History oxyCODONE /ACETAMINOPHEN [Percocet 1 tab PO Q6H PRN #5 tablet 01/08/22 Unknown Rx 5/325 mg] ED Physical Exam - General Limitations: No Limitations General appearance: other (SCREAMING HYSTERICALLY LIKE PREVIOUS ER VISIT) - Head Head exam: Present: atraumatic, normocephalic, normal inspection - Eye Eye exam: Present: normal appearance, PERRL, EOMI Pupils: Present: normal accommodation - ENT ENT exam: Present: normal exam, mucous membranes moist - Neck Neck exam: Present: normal inspection, full ROM - Respiratory Respiratory exam: Present: normal lung sounds bilaterally - Cardiovascular Cardiovascular Exam: Present: regular rate, normal rhythm, normal heart sounds - GI/Abdominal GI/Abdominal exam: Present: soft, normal bowel sounds - Extremities Exam Extremities exam: Present: normal inspection, full ROM, normal capillary refill - Back Exam Back exam: Present: normal inspection, full ROM. Absent: tenderness, CVA tenderness (R), CVA tenderness (L), muscle spasm, paraspinal tenderness, vertebral tenderness - Neurological Exam Neurological exam: Present: alert, oriented X3, CN II-XII intact - Psychiatric Psychiatric exam: Present: normal affect, normal mood - Skin Skin exam: Present: normal color ED Course Vital Signs 01/10/22 22:46 Temperature 98.2 F Pulse Rate 90 Respiratory 18 Rate Blood Pressure 136/70 O2 Sat by Pulse 100 Oximetry - Reevaluation(s) Reevaluation #1: 01/11/22 04:38 LOOKING AT PATIENT'S BLOOD TEST RESULT; THEY ARE BETTER THAN PREVIOUS ER VISIT. PATIENT CONTINUES TO SCREAM NONSTOP ON AND OFF THAT SHE WANTS PAIN MEDICATIONS. PATIENT IS CLEARLY PAIN SEEKING BEHAVIOR SHE LIED THAT SHE ONLY GOT 1 PERCOCET BUT PREVIOUS CHART SHOWS SHE RECEIVED PAPER PRESCRIPTION FOR 5. 01/11/22 04:40 ED Medical Decision Making - Lab Data Result diagrams: 01/10/22 23:12 01/11/22 04:39 Critical care attestation.: If time is entered above; I have spent that time in minutes in the direct care of this critically ill patient, excluding procedure time. ED Disposition Clinical Impression: Drug-seeking behavior, Hypokalemia Disposition: 01 HOME / SELF CARE / HOMELESS Is pt being admited?: No Does the pt Need Aspirin: No Condition: Stable Instructions: Finding Treatment for Addiction Referrals: PRIMARY CARE, [Primary Care Provider] - 3-5 Days Forms: AMA Form Time of Disposition: 04:41
[2022-01-10] MEDS ORDERED: ZIPRASIDONE MESYLATE 20 MG VIAL IM ONE (23:15)
[2022-01-10 23:37] LABS: Hemoglobin 11.1 gm/dl (10.1-14.3); Mean Corpuscular HGB Conc 33 % (30-34); Mean Corpuscular Volume 86 fl (79-97); Platelet Count 306 K/mm3 (140-440); Red Blood Count 3.94 M/mm3 (3.65-5.03); Red Cell Distribution Width 16.8 % (13.2-15.2)
[2022-01-11 00:11] LABS: Calcium 9.4 mg/dL (8.4-10.2)
[2022-01-11] MEDS ORDERED: LACTATED RINGERS 500 ML IV ONE (01:15)
[2022-01-11] MEDS ORDERED: POTASSIUM CHLORIDE 10 MEQ 10 MEQ/100 ML BAG IV SCH (04:00)
[2022-01-11 05:03] LABS: Calcium 9.7 mg/dL (8.4-10.2)
[2022-01-11 07:03] VITALS: BP 134/84
== END 2022-01-11 05:15 | disposition home or self-care (01) ==
LOC: ED 22:46
DX: E87.6 Hypokalemia (principal); I11.0 Hypertensive heart disease with heart failure; I50.9 Heart failure, unspecified; E11.9 Type 2 diabetes mellitus without complications; Z76.5 Malingerer [conscious simulation]; Z91.09 Other allergy status, other than to drugs and biological substances
CPT/HCPCS: 36415; 80048; 80053; 82140; 83690; 83735; 85027; 96360; 96361; 96372; 99284; J3480; J7120